=== PATIENT | male | born 1985 | race Caucasian/White ===

== ENCOUNTER 2017-08-24 15:44 | Emergency (ER) | payer SELFPAY ==
[2017-08-24 16:01] VITALS: TEMP 98.1
[2017-08-24] MEDS ORDERED: HYDROmorphONE/DILAUDID 1 MG/ML INJ IVP ONE ×2 (17:00→17:13)
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
[2017-08-24 17:20] LABS: CREATINE KINASE 274 IU/L (0-224)
[2017-08-24] MEDS ORDERED: OXYCODONE/APAP 5/325 TAB PO ONE (18:45)
[2017-08-24 19:14] VITALS: BP 124/68; PULSE 84; RESP 18; O2SAT 94
== END 2017-08-24 19:13 | disposition home or self-care (01) ==
PROC: 0HQEXZZ Repair Left Lower Arm Skin, External Approach (ICD-10-PCS; principal; 2017-08-24)
DX: S51.812A Laceration without foreign body of left forearm, initial encounter (principal); S57.82XA Crushing injury of left forearm, initial encounter; W23.0XXA Caught, crushed, jammed, or pinched between moving objects, initial encounter
CPT/HCPCS: 96374; J1170